=== PATIENT | female | born 1960 | race Caucasian/White ===

== ENCOUNTER 2019-12-30 17:26 | Emergency (ER) | payer OTHER ==
[~2019-12-30] VITALS: Ht 160 cm; Wt 52.2 kg
[2019-12-30] MEDS ORDERED: COZAAR50 MG (17:47)
== END 2019-12-30 23:40 | disposition home or self-care (01) ==
LOC: ER 17:26
DX: U07.1 COVID-19 (principal); R50.9 Fever, unspecified